=== PATIENT | male | born 1975 | race Caucasian/White ===

== ENCOUNTER 2020-11-20 12:38 | Emergency (ER) | payer SELFPAY ==
--- NOTE | 2020-11-20 12:50 | NUR ---
Called patient's name in the waiting room, patient handed this RN his registration clipboard, said he was leaving and did not want to wear a mask. Attempted to speak with patient, patient continued to walk back outside. Attempted to call primary contact, Jeni Salomon, no answer to call, unable to leave a voicemail.
--- NOTE | 2020-11-20 12:56 | NUR ---
Again attempted to call 's phone, no answer received, unable to leave a voicemail.
== END 2020-11-20 12:50 | disposition left against medical advice (07) ==
LOC: ER FS 12:42
DX: I10 Essential (primary) hypertension (principal); R41.82 Altered mental status, unspecified